=== PATIENT | female | born 1935 | race Two or more races ===

== ENCOUNTER 2018-03-01 20:56 | Emergency (ER) | payer OTHER ==
[2018-03-01] MEDS: ALBUTEROL 0.083% (NEB) 2.5 MG/3 ML AMP INH (22:41)
[2018-03-01] MEDS: METHYLPREDNISOLONE 125 MG INJ IV (22:50)
[2018-03-01 23:05] LABS: ADD MAN DIFF? NO
[2018-03-01 23:08] LABS: BASOPHIL # 0.1 10^3/ul (0.0-0.1); BASOPHILS % 0.8 % (0.0-2.0); EOSINOPHILS # 0.1 10^3/ul (0.0-0.5); EOSINOPHILS % 1.4 % (0.0-7.0); HEMATOCRIT 39.6 % (37.0-47.0); HEMOGLOBIN 12.8 g/dl (12.0-16.0); LYMPHOCYTES % 25.5 % (15.0-51.0); MEAN CORPUSCULAR HEMOGLOBIN 29.4 pg (29.0-33.0); MEAN CORPUSCULAR HGB CONC 32.3 g/dl (32.0-37.0); MEAN PLATELET VOLUME 10.1 fl (7.4-10.4); MONOCYTE # 0.8 10^3/ul (0.3-0.9); MONOCYTES % 10.1 % (0.0-11.0); NEUTROPHILS % 62.1 % (39.0-77.0); PLATELET COUNT 213 10^3/UL (140-415); RED BLOOD COUNT 4.35 10^6/ul (4.20-5.40); RED CELL DISTRIBUTION WIDTH 13.7 % (11.5-14.5)
[2018-03-01 23:24] LABS: ANION GAP 10 (5-13); BLOOD UREA NITROGEN 20 mg/dl (7-20); CALCIUM 9.8 mg/dl (8.4-10.2); CARBON DIOXIDE 31 mmol/L (21-31); CHLORIDE 102 mmol/L (97-110); CREATININE 0.67 mg/dl (0.44-1.00); GLUCOSE 117 mg/dl (70-220); POTASSIUM 3.9 mmol/L (3.5-5.1); SODIUM 143 mmol/L (135-144)
[2018-03-01 23:36] LABS: B-TYPE NATRIURETIC PEPTIDE 106 PG/ML (0-450); TROPONIN-I 0.026 ng/ml (0.000-0.120)
== END 2018-03-02 02:03 | disposition home or self-care (01) ==
LOC: E/R 03-02 02:03
DX: J40 Bronchitis, not specified as acute or chronic (principal); I10 Essential (primary) hypertension
CPT/HCPCS: 36415; 71045; 80048; 83880; 84484; 85025; 93005; 94644; 96374; 99285-25